=== PATIENT | male | born 1995 | race Hispanic/Latino ===

== ENCOUNTER 2017-12-17 18:12 | Emergency (ER) | payer OTHER ==
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
== END 2017-12-17 19:34 | disposition home or self-care (01) ==
LOC: MADERS 18:12
DX: S16.1XXA Strain of muscle, fascia and tendon at neck level, initial encounter (principal); V43.52XA Car driver injured in collision with other type car in traffic accident, initial encounter
CPT/HCPCS: 72125

== ENCOUNTER 2019-01-17 06:31 | Emergency (ER) | payer BC, OTHER ==
[2019-01-17] MEDS ORDERED: Sodium Chloride 0.9% 1,000 ML ONE (07:04)
[2019-01-17] MEDS ORDERED: Ondansetron PF 4 MG/2 ML Vial ONE (07:04)
[2019-01-17] MEDS ORDERED: Ketorolac Tromethamine 30 MG/ML VIAL ONE (07:04)
[2019-01-17 07:09] LABS: Bilirubin Negative (Negative); Blood, Urine Large (Negative); Clarity Clear (Clear); Glucose, Urine (Dipstick) Negative (Negative); Leukocyte Negative (Negative); Nitrite Negative (Negative); Protein, Urine (Dipstick) 30 mg/dL (Neg-Trace); Urobilinogen 0.2 mg/dL (Less than 2)
[2019-01-17 07:16] LABS: #Basophils 0.1 thou/uL (0.0-0.2); #Eosinphils 0.2 thou/uL (0.0-0.7); #Monocytes 0.7 thou/uL (0.11-0.59); #Neutrophils 6.3 thou/uL (1.40-6.50); %Basophils 1.2 % (0.0-1.0); %Eosinophils 1.8 % (0.0-10.0); %Lymphocytes 35.4 % (21.0-51.0); %Monocytes 6.3 % (0.0-10.0); %Neutrophils 55.4 % (42.0-75.0); Bacteria/HPF Rare-Few HPF (None Seen); Hemoglobin 15.3 g/dL (14.0-18.0); Mean Corpuscular HGB CONC 33.3 g/dL (32.0-36.0); Mean Corpuscular Hemoglobin 28.9 pg (27.0-31.0); Mucous/LPF 3+ LPF (<2+); Platelet Count 390 thou/uL (130-400); RBC Distribution Width 11.1 % (11.5-14.5); RBC/HPF Greater than 50 HPF (0-3); Red Blood Cell (RBC) Count 5.29 mill/uL (4.70-6.10); Squamous Epithelial 0-3 HPF (0-3); White Blood Cell (WBC) Count 11.3 thou/uL (4.8-10.8)
[2019-01-17 07:24] LABS: ALT (SGPT) 61 U/L (8-55); AST (SGOT) 28 U/L (5-34); Alkaline Phosphatase 87 U/L (40-110); Anion Gap 18 mmol/L (10-20); BUN (Urea Nitrogen) 10 mg/dL (8.9-20.6); Bilirubin, Total 0.5 mg/dL (0.2-1.2); Calc. Creatinine Clearance 0 mL/min (70-130); Calcium 10.1 mg/dL (7.8-10.44); Carbon Dioxide 25 mmol/L (22-29); Chloride 104 mmol/L (98-107); Estimated GFR-MDRD Greater than 90; Globulin 3.4 g/dL (2.4-3.5); Glucose 112 mg/dL (70-105); Potassium 3.6 mmol/L (3.5-5.1); Protein, Total 8.4 g/dL (6.0-8.3); Sodium 143 mmol/L (136-145)
[2019-01-17] MEDS ORDERED: Tamsulosin HCl 0.4 MG CAP ONE (07:31)
--- NOTE | 2019-01-17 10:30 | CT ---
CT ABDOMEN AND PELVIS: 01/17/2019 HISTORY: Mid back pain. TECHNIQUE: Axial CT imaging provided at 5 mm intervals through the abdomen and pelvis without contrast. Coronal and sagittal reformatted imaging obtained. FINDINGS: Lack of contrast media limits assessment of viscera, bowel and vascular structures and for lymphadeno barber. The imaged lung base is unremarkable with no free intraperitoneal air or fluid noted. The hepa tic parenchyma is hypodense, evidence of hepatic steatosis. The gallbladder, spleen, pancreas and adr enal glands demonstrate no acute findings. Three punctate calcifications noted within the left kidney and one punctate calcification noted withi n the mid pole of the right kidney, evidence of bilateral nephrolithiasis. No hydronephrosis noted on either side. On axial image 89 there is a faint calcification in the region of the distal ureter, at the level of the ureterovesical junction on the left, suggesting a distal obstructing left ureteral stone, measuri ng in the 2-3 mm range. No ureteral calculus appreciated on the right. Bowel appears grossly unremarkable, including the appendix. No acute osseous abnormality. IMPRESSION: 1. Bilateral intrarenal calculi. 2. A 2-3 mm obstructing stone within the distal left ureter, in the region of the left ureterovesical junction. POS: [facility]
== END 2019-01-17 08:20 | disposition home or self-care (01) ==
LOC: MADERS 06:31
DX: N20.2 Calculus of kidney with calculus of ureter (principal)
CPT/HCPCS: 74176; 80053; 81003; 81015; 85025; 96361; 96374; 96375; J1885; J2405; J7050